=== PATIENT | female | born 1940 | race Caucasian/White ===

== ENCOUNTER 2023-09-11 19:02 | Emergency (ER) | payer MEDICARE, SELFPAY ==
[2023-09-11 19:05] VITALS: BP 163/75; BMI 27.5
[2023-09-11 19:07] VITALS: BP 163/75
[2023-09-11 19:20] LABS: % Basophils 0.3 % (0-2); % Eosinophils 1.9 % (0-6); % Immature Granulocytes 0.3 % (0-0.5); % Lymphocytes 19.9 % (20.5-51.1); % Monocytes 5.1 % (1.7-9.3); % Neutrophils 72.5 % (42.2-75.2); Absolute Eosinophils 0.1 10^3/uL (0-0.7); Absolute Lymphocytes 1.3 10^3/uL (1.2-3.4); Absolute Monocytes 0.3 10^3/uL (0.1-0.6); Absolute Neutrophils 4.7 10^3/uL (1.4-6.5); Hematocrit 39.3 % (37.0-47.0); Hemoglobin 14.2 g/dL (12.0-16.0); Mean Corp Hgb Conc. 36.1 g/dL (33.0-37.0); Mean Corpuscular Hgb 30.7 pg (27.0-31.0); Mean Corpuscular Volume 84.9 fL (81.0-99.0); Nucleated Red Blood Cells % 0 %; Platelet Count 179 10^3/uL (130-400); Red Blood Cell Count 4.63 10^6/uL (4.20-5.40); Red Cell Dist. Width 12.4 % (11.5-14.5); White Blood Cell Count 6.5 10^3/uL (4.8-10.8)
[2023-09-11 19:34] LABS: ALT (SGPT) 19 U/L (0-35); AST (SGOT) 29 U/L (14-36); Alkaline Phosphatase 93 U/L (38-126); Blood Urea Nitrogen 9 mg/dl (7-17); Calcium 8.8 mg/dl (8.4-10.2); Carbon Dioxide 24 mmol/L (22-30); Estimated Creatinine Clearance 49 ml/min; Glucose 193 mg/dl (70-99); Total Bilirubin 0.6 mg/dl (0.2-1.3); Total Protein 6.2 g/dl (6.3-8.2); eGFR > 60.00
[2023-09-11 19:41] LABS: Chloride 100 mmol/L (98-107); Sodium 133 mmol/L (135-145)
[2023-09-11 20:00] VITALS: BP 158/76
--- NOTE | 2023-09-11 20:08 | ED.GENMED ---
Addendum entered and electronically signed by Steven Orozco DO 09/11/23 22:29:
Prior to discharge patient smiling in no acute distress
Original Note:
History of Present Illness
General
Chief Complaint: Anxiety
Source: patient and family
Exam Limitations: dementia
Time Seen by Provider: 09/11/23 19:56
Nursing documentation reviewed up to this point in time: agreed with
Travel History
Have you had any contact with someone who has COVID-19?: No
Do you have any symptoms of coronavirus? Fever > 100 degrees, chills, cough, shortness of breath, sore throat, loss of taste or smell, muscle aches, or headache?: No
History of Present Illness
History of Present Illness:
83-year-old female from [facility] suffers from dementia diagnosed with COVID 5 days ago took 1 pill of Paxlovid stopped because her symptoms are getting better having some cough, eating okay, apparently had a period of confusion and cough today
did not know where she was 911 was called, here she is accompanied by her daughter and son-in-law who live locally she has had a slow recovery from COVID more confused than usual, no falls nondrinker non-smoker does have asthma she lives in
independent living but daughter states she can go home with her daughter can stay with her
Past History
Past History
ED Past Medical History: Other (Dementia)
Social History
Tobacco: Non-smoker
Alcohol: None
Drug: None
Personal: Single
Living: assisted living
Employment: Retired
Review of Systems
Review of Systems
All Other Systems: Not applicable
Constitutional: Denies fever or fatigue
EENT: Reports no symptoms
Respiratory: Reports cough
Cardiac: Reports no symptoms
ABD/GI: Reports no symptoms
: Reports no symptoms
Musculoskeletal: Reports no symptoms
Skin: Reports no symptoms
Neurological: Reports weakness
Endocrine: Reports no symptoms
Phy Exam
Physical Exam
Physical Exam:
Physical Exam
General: no apparent distress, not acutely ill occasionally cough
Neck: Lips are slightly dry
Heart: s1/s2 regular rate and rhythm, no murmur. equal radial pulses.
Lungs: No wheezes no retraction
Abdomen: Not tender
Neuro: Pleasantly confused knows her name knows she is at the hospital knows her daughter son-in-law unsure of the year
Skin: no rash
Psychiatric: cooperative
Extremities: no edema. no calf tenderness.
Course
Orders/Labs/Results
Orders:
Orders
09/11/23 19:13
CMP [Comprehensive Metabolic Panel] Urgent
Complete Blood Count/With Diff Urgent
09/11/23 20:06
CR Chest - 2 Views Urgent
Comment:
Reason For Exam: cough
09/11/23 20:07
CT Head W/o Iv Contrast Urgent
Comment:
Reason For Exam: confusion
Ipratropium/Albuterol Sulfate [Duoneb] 3 ml INH R NOW ONE
09/11/23 20:41
Urinalysis Reflex To Culture Urgent
Date Specimen was Collected: 09/11/23
Time Specimen was Collected: 20:09
Urine Microscopic Reflex Cult Urgent
Abnormal Lab Results
09/11/23 09/11/23
19:13 20:41
Lymphocytes % 19.9 L %
(20.5-51.1)
Sodium 133 L mmol/L
(135-145)
Glucose 193 H mg/dl
(70-99)
Total Protein 6.2 L g/dl
(6.3-8.2)
Leukocyte Esterase Rfl Trace A
(Negative)
09/11/23 19:13
09/11/23 19:13
Vital Signs
Initial and Last Documented VS:
Initial Vital Signs
Temp Pulse Resp BP Pulse Ox
98.1 F 66 18 163/75 98
09/11/23 19:05 09/11/23 19:05 09/11/23 19:05 09/11/23 19:05 09/11/23 19:05
Last Documented Vital Signs
Temp Pulse Resp BP Pulse Ox
98.1 F 82 16 139/72 96
09/11/23 19:05 09/11/23 21:15 09/11/23 21:15 09/11/23 21:00 09/11/23 21:15
MDM/Problems Addressed
Differential Diagnosis Includes:
Dementia you are toxic metabolic doubt stroke or UTI
MDM/Problems Addressed:
Confusion recent COVID
Chronic conditions affecting care: Neurological disorder
Acute Exacerbation and/or Progression of Chronic Illness: Neurological disorder
*Critical Care Note
Total Time (30-74mins, 75-104mins- exclusive of procedures): Not Applicable
Update Note
Update Note:
[address] of the head noted chronic meniangioma, no acute changes, chest x-ray
ED Attending Note
-
Portions of this chart may have been created with voice recognition software.� Occasional wrong word or��sound alike� substitutions may have occurred due to the inherent limitations of voice recognition software.
Discharge Plan
Departure
Patient Disposition: Home (Routine Discharge)
Date of Disposition: 09/11/23
Time of Disposition: 22:08
Patient with high blood pressure during this ER visit?: No
Condition: Good
Covid-19: Suspected COVID-19
Discharge Problem:
Altered mental status
Instructions: COVID-19 (DC)
Prescriptions:
New
albuterol sulfate 90 mcg/actuation HFA aerosol inhaler
2 puff inhalation Q6H PRN (Reason: shortness of breath or wheezing) Qty: 8.5 0RF
No Action
donepezil 10 mg tablet
10 mg PO DAILY
Rx Instructions:
per daughter pt has not been adherent to this medication
alprazolam 0.25 mg tablet
0.25 mg PO BID PRN (Reason: ANXIETY)
Rx Instructions:
this rx was just picked up by family prior to admission. Pt has not taken any yet
sertraline 25 mg tablet
25 mg PO BID
Rx Instructions:
dose was just increased to 50mg daily
lovastatin 20 mg tablet
20 mg PO DAILY
Rx Instructions:
per daughter pt has not been adherent to this medication
aspirin 81 mg Tablet,Chewable
81 mg PO DAILY Qty: 30 0RF
memantine 5 mg tablet
5 mg PO BID Qty: 60 0RF
Rx Instructions:
per daughter pt has not been adherent to this medication
Referrals:
Milena Stubbs DO [Family Provider] -
Interventions
Interventions:
*Risk Screen - Suicide Last Done: 09/11/23 19:05
*Neglect/Abuse Screening Last Done: 09/11/23 19:05
ED- Fall Risk Assessment Last Done: 09/11/23 20:56
*ED COVID-19 Vaccine History Last Done: 09/11/23 19:05
ED-Psychological Assessment Last Done: 09/11/23 20:56
[2023-09-11] MEDS: DUONEB 3 ML INH (20:12)
[2023-09-11 20:47] LABS: Urine Albumin Negative (Neg - Trace); Urine Bilirubin Negative (Negative); Urine Character Clear (Clear); Urine Color Yellow; Urine Glucose Negative (Negative); Urine Ketone Negative (Negative); Urine Leukocyte Trace (Negative); Urine Nitrite Negative (Negative); Urine Occult Blood Negative (Negative); Urine Urobilinogen Negative (Neg - 1+)
[2023-09-11 20:54] LABS: Urine Red Blood Cell None Seen /HPF (0-2); Urine White Cell 0-2 /HPF (0-5)
--- NOTE | 2023-09-11 20:54 | EDRN ---
Patient ambulated into the restroom to obtain urine, was able to ambulate without difficulties, back in bed resting comfortably with family at bedside
[2023-09-11 21:00] VITALS: BP 139/72
== END 2023-09-11 22:58 | disposition home or self-care (01) ==
LOC: EMR 19:02
PROVIDERS: EMERGENCY PHYSICIAN Emergency Medicine; FAMILY PHYSICIAN Hospitalist
DX: R41.82 Altered mental status, unspecified (principal); R05.9 Cough, unspecified; R53.1 Weakness
CPT/HCPCS: 99285; 94640; 70450; 71046; 80053; 81003; 81015; 85025

== ENCOUNTER → 2023-11-09 11:30 | Outpatient (REF) | payer MEDICARE, SELFPAY ==
[2023-11-09 12:16] LABS: Urine Albumin Negative (Neg - Trace); Urine Bilirubin Negative (Negative); Urine Character Clear (Clear); Urine Color Yellow; Urine Glucose Negative (Negative); Urine Ketone Negative (Negative); Urine Leukocyte 1+ (Negative); Urine Nitrite Negative (Negative); Urine Occult Blood Negative (Negative); Urine Urobilinogen Negative (Neg - 1+)
[2023-11-09 12:26] LABS: Urine Bacteria Few (Negative); Urine Red Blood Cell 0-2 /HPF (0-2)
== END ==
LOC: OLABMERCHI 11:30
PROVIDERS: ATTENDING PHYSICIAN Nurse Practitioner Gerontology; FAMILY PHYSICIAN Hospitalist
DX: N39.0 Urinary tract infection, site not specified (principal)
CPT/HCPCS: 81003; 81015; 87086

== ENCOUNTER → 2024-03-27 18:56 | Outpatient (REF) | payer OTHER, SELFPAY ==
[2024-03-27 20:07] LABS: Urine Albumin Negative (Neg - Trace); Urine Bilirubin Negative (Negative); Urine Character Clear (Clear); Urine Color Yellow; Urine Glucose Negative (Negative); Urine Ketone Negative (Negative); Urine Leukocyte 2+ (Negative); Urine Nitrite Negative (Negative); Urine Occult Blood Negative (Negative); Urine Urobilinogen Negative (Neg - 1+)
[2024-03-27 20:20] LABS: Urine Red Blood Cell 0-2 /HPF (0-2); Urine Squamous Cell >30 /LPF (Few)
[2024-03-27 20:21] LABS: Urine Bacteria Many (Negative)
== END ==
LOC: OLABMERCHI 18:56
PROVIDERS: ATTENDING PHYSICIAN Hospitalist
DX: N39.0 Urinary tract infection, site not specified (principal)
CPT/HCPCS: 81003; 81015; 87086

== ENCOUNTER → 2024-07-30 13:56 | Outpatient (REF) | payer MEDICARE, SELFPAY | LOC: WDC 13:56 | PROVIDERS: ATTENDING PHYSICIAN Nurse Practitioner Adult Health; FAMILY PHYSICIAN Hospitalist | DX: Z12.31 Encounter for screening mammogram for malignant neoplasm of breast (principal) | CPT/HCPCS: 77063; 77067 ==

== ENCOUNTER → 2024-08-23 08:15 | Outpatient (REF) | payer MEDICARE, SELFPAY | LOC: WDC 08:15 | PROVIDERS: ATTENDING PHYSICIAN Nurse Practitioner Adult Health; FAMILY PHYSICIAN Hospitalist | DX: R92.8 Other abnormal and inconclusive findings on diagnostic imaging of breast (principal) | CPT/HCPCS: 76642 ==

== ENCOUNTER 2024-09-27 02:39 | Emergency (ER) | payer MEDICARE, SELFPAY ==
[2024-09-27 02:49] VITALS: BP 136/86
[2024-09-27 03:13] LABS: % Basophils 0.2 % (0-2); % Eosinophils 0.2 % (0-6); % Immature Granulocytes 0.4 % (0-0.5); % Lymphocytes 3.3 % (20.5-51.1); % Monocytes 2.4 % (1.7-9.3); % Neutrophils 93.5 % (42.2-75.2); Absolute Immature Granulocytes 0.1 10^3/uL (0-0.05); Absolute Lymphocytes 0.5 10^3/uL (1.2-3.4); Absolute Monocytes 0.3 10^3/uL (0.1-0.6); Absolute Neutrophils 12.8 10^3/uL (1.4-6.5); Hematocrit 49.4 % (37.0-47.0); Hemoglobin 16.8 g/dL (12.0-16.0); Mean Corpuscular Hgb 30.5 pg (27.0-31.0); Mean Corpuscular Volume 89.8 fL (81.0-99.0); Mean Platelet Volume 10.1 fL (7.4-10.4); Nucleated Red Blood Cells % 0 %; Platelet Count 176 10^3/uL (130-400); Red Cell Dist. Width 12.6 % (11.5-14.5); White Blood Cell Count 13.6 10^3/uL (4.8-10.8)
[2024-09-27 03:29] LABS: ALT (SGPT) 23 U/L (0-35); AST (SGOT) 29 U/L (14-36); Alkaline Phosphatase 127 U/L (38-126); Blood Urea Nitrogen 16 mg/dl (7-17); Calcium 10.2 mg/dl (8.4-10.2); Carbon Dioxide 23 mmol/L (22-30); Chloride 102 mmol/L (98-107); Glucose 203 mg/dl (70-99); Potassium 4.6 mmol/L (3.5-5.1); Sodium 137 mmol/L (135-145); Total Bilirubin 1.4 mg/dl (0.2-1.3); Total Protein 7.5 g/dl (6.3-8.2)
[2024-09-27 04:19] VITALS: BP 153/85
[2024-09-27 05:00] VITALS: BP 153/86
[2024-09-27 06:00] VITALS: BP 151/85
--- NOTE | 2024-09-27 06:34 | ED.GENMED ---
History of Present Illness
General
Chief Complaint: Abdominal Symptoms
Time Seen by Provider: 09/27/24 06:34
History of Present Illness
History of Present Illness:
TIME OF INITIAL ENCOUNTER: 6:35 AM
HPI: The patient presents with multiple episodes of diarrhea. There was concern for dehydration. She had 1 episode of vomiting in the emerged ferment the the main symptom was diarrhea. She is not on any antibiotics currently. Her son-in-law
states that there is always 'something going around [facility]'. Although the patient has some degree of mild dementia, she has appears to be able to answer simple questions. She denies abdominal pain. She overall feels improved after IV fluids
have been given. There is no change in her mental status.
EXAM:
GENERAL: Appears in no distress
HEENT: Moist oral mucosa
CARDIOVASCULAR: Borderline tachycardic heart rate with regular rhythm
PULMONARY: No respiratory distress, breathing is nonlabored, equal and clear breath sounds
ABDOMEN: Soft and nontender with no peritoneal signs
NEUROLOGIC: The patient has evidence of dementia, not oriented to month or place, strength is equal in all extremities
EXTREMITIES: Moves all extremities equally, no tenderness, no edema
PYSCHIATRIC: Fair historian, limited insight and judgment
NUMBER AND COMPLEXITY OF PROBLEMS ADDRESSED AT THE ENCOUNTER
� Chronic conditions affecting care: Dementia, hyperlipidemia, anxiety
� Acute Exacerbation and/or Progression of Chronic Illness: This is an acute problem
� Differential Diagnosis includes: Viral gastroenteritis, viral syndrome, norovirus, foodborne illness, doubt colitis as she has no ongoing abdominal and has no tenderness on examination
AMOUNT AND/OR COMPLEXITY OF DATA TO BE REVIEWED AND ANALYZED
� I performed an independent evaluation of and my interpretation is:
EKG:
CT:
X-rays:
Laboratory Studies: White count is 13.6, hemoglobin 16.8, creatinine is 1.3, glucose is 203, minimal elevation of total bili but normal transaminase
Other:
� Review of other/old records: The patient was seen here with a change in mental status 2 weeks ago after starting Paxlovid
� Clinical information was obtained by an independent historian: I spoke to the son-in-law at bedside for history
� Prescriptions/Medications Considered but not given:
� Further testing considered but not performed: Considered CT of the abdomen pelvis however the patient has no abdominal tenderness
RISK OF COMPLICATIONS AND/OR MORBIDITY OR MORTALITY OF PATIENT MANAGEMENT
� Social determinants of health affecting care: She lives with a electrical test technician in independent living at [facility].
� Discussion with other providers:
� Escalation of care including admission/observation vs risk of discharge considered: The patient has no abdominal pain on examination. She overall reports improvement after a liter of fluid was given. Blood work suggest some
degree of mild dehydration. Of note the blood sugar is 203 I notified the son-in-law of this and they will follow-up with primary care doctor as well.
ANY OTHER UPDATES:
Past History
Past History
ED Past Medical History: Other (Dementia)
Social History
Tobacco: Non-smoker
Alcohol: None
Drug: None
Personal: Single
Living: assisted living
Employment: Retired
Phy Exam
Physical Exam
Physical Exam:
See HPI
Course
Orders/Labs/Results
Orders:
Orders
09/27/24 03:05
CMP [Comprehensive Metabolic Panel] Urgent
Complete Blood Count/With Diff Urgent
09/27/24 06:35
0.9% Sodium Chloride 1000 ml [Nss] 1,000 ml IV BOLUS
Abnormal Lab Results
09/27/24
03:05
WBC 13.6 H 10^3/uL
(4.8-10.8)
RBC 5.50 H 10^6/uL
(4.20-5.40)
Hgb 16.8 H g/dL
(12.0-16.0)
Hct 49.4 H %
(37.0-47.0)
Abs Immat Gran (auto) 0.1 H 10^3/uL
(0-0.05)
Absolute Neuts (auto) 12.8 H 10^3/uL
(1.4-6.5)
Absolute Lymphs (auto) 0.5 L 10^3/uL
(1.2-3.4)
Neutrophils % 93.5 H %
(42.2-75.2)
Lymphocytes % 3.3 L %
(20.5-51.1)
Creatinine 1.3 H mg/dL
(0.6-1.0)
Glucose 203 H mg/dl
(70-99)
Total Bilirubin 1.4 H mg/dl
(0.2-1.3)
Alkaline Phosphatase 127 H U/L
(38-126)
09/27/24 03:05
09/27/24 03:05
Vital Signs
Initial and Last Documented VS:
Initial Vital Signs
Temp Pulse Resp BP Pulse Ox
36.5 C 103 26 136/86 100
09/27/24 02:49 09/27/24 02:49 09/27/24 02:49 09/27/24 02:49 09/27/24 02:49
Last Documented Vital Signs
Temp Pulse Resp BP Pulse Ox
36.5 C 103 26 151/85 97
09/27/24 02:49 09/27/24 02:49 09/27/24 02:49 09/27/24 06:00 09/27/24 06:00
*Critical Care Note
Total Time (30-74mins, 75-104mins- exclusive of procedures): Not Applicable
ED Attending Note
-
Portions of this chart may have been created with voice recognition software.� Occasional wrong word or��sound alike� substitutions may have occurred due to the inherent limitations of voice recognition software.
Discharge Plan
Departure
Patient Disposition: Home (Routine Discharge)
Date of Disposition: 09/27/24
Time of Disposition: 06:40
Patient with high blood pressure during this ER visit?: Yes
Discharge Problem:
Diarrhea with dehydration
Instructions: Diarrhea in teens and adults, Dehydration, Adult (DC), BLOOD PRESSURE
Prescriptions:
No Action
donepezil 10 mg tablet
10 mg PO DAILY
Rx Instructions:
per daughter pt has not been adherent to this medication
alprazolam 0.25 mg tablet
0.25 mg PO BID PRN (Reason: ANXIETY)
Rx Instructions:
this rx was just picked up by family prior to admission. Pt has not taken any yet
sertraline 25 mg tablet
25 mg PO BID
Rx Instructions:
dose was just increased to 50mg daily
lovastatin 20 mg tablet
20 mg PO DAILY
Rx Instructions:
per daughter pt has not been adherent to this medication
aspirin 81 mg Tablet,Chewable
81 mg PO DAILY Qty: 30 0RF
memantine 5 mg tablet
5 mg PO BID Qty: 60 0RF
Rx Instructions:
per daughter pt has not been adherent to this medication
albuterol sulfate 90 mcg/actuation HFA aerosol inhaler
2 puff inhalation Q6H PRN (Reason: shortness of breath or wheezing) Qty: 8.5 0RF
Referrals:
Milena Stubbs, DO [Family Provider] -
Activity Restrictions/Additional Instructions:
White count is elevated and hemoglobin is also on the higher side along with a mild elevation of the creatinine�this suggest some degree of dehydration you were given IV fluids. Of note, your blood sugar is elevated at 203 and I recommend that you
follow-up with primary care doctor for reassessment. You are given a liter of IV fluid to help treat mild dehydration. Return here if worse or other concerns.
Interventions
Interventions:
*Risk Screen - Suicide Last Done: 09/27/24 02:49
*General Assessment Last Done: 09/27/24 04:18
*Neglect/Abuse Screening Last Done: 09/27/24 04:18
ED- Fall Risk Assessment Last Done: 09/27/24 04:17
*ED COVID-19 Vaccine History Last Done: 09/27/24 04:18
CV-[place] Assessment Last Done: 09/27/24 04:16
Discharge Date and Time
Print Language: ICELANDIC
--- NOTE | 2024-09-27 06:40 | EDRN ---
Dr. Day currently at the [facility] bedside
[2024-09-27 06:43] VITALS: BP 136/81
[2024-09-27] MEDS: NSS 1000 IV (06:43)
== END 2024-09-27 06:47 | disposition home or self-care (01) ==
LOC: EMR 02:39
PROVIDERS: Student in an Organized Health Care Education/Training Program; EMERGENCY PHYSICIAN Emergency Medicine; FAMILY PHYSICIAN Hospitalist
DX: R19.7 Diarrhea, unspecified (principal); E86.0 Dehydration; F03.A0 Unspecified dementia, mild, without behavioral disturbance, psychotic disturbance, mood disturbance, and anxiety
CPT/HCPCS: 99283; 96360; 80053; 85025

== ENCOUNTER → 2024-11-08 12:24 | Outpatient (REF) | payer MEDICARE, SELFPAY ==
[2024-11-08 13:49] LABS: % Basophils 0.6 % (0-2); % Immature Granulocytes 0.2 % (0-0.5); % Lymphocytes 32.8 % (20.5-51.1); % Monocytes 6.5 % (1.7-9.3); % Neutrophils 55.9 % (42.2-75.2); Absolute Basophils 0.1 10^3/uL (0-0.2); Absolute Eosinophils 0.4 10^3/uL (0-0.7); Absolute Lymphocytes 2.8 10^3/uL (1.2-3.4); Absolute Monocytes 0.6 10^3/uL (0.1-0.6); Absolute Neutrophils 4.8 10^3/uL (1.4-6.5); Hematocrit 48.6 % (37.0-47.0); Hemoglobin 15.7 g/dL (12.0-16.0); Mean Corp Hgb Conc. 32.3 g/dL (33.0-37.0); Mean Corpuscular Hgb 29.9 pg (27.0-31.0); Mean Corpuscular Volume 92.6 fL (81.0-99.0); Mean Platelet Volume 10.8 fL (7.4-10.4); Nucleated Red Blood Cells % 0 %; Platelet Count 232 10^3/uL (130-400); Red Blood Cell Count 5.25 10^6/uL (4.20-5.40); Red Cell Dist. Width 12.8 % (11.5-14.5); White Blood Cell Count 8.7 10^3/uL (4.8-10.8)
[2024-11-08 14:03] LABS: ALT (SGPT) 26 U/L (0-35); AST (SGOT) 31 U/L (14-36); Albumin 4.8 g/dl (3.5-5.0); Alkaline Phosphatase 120 U/L (38-126); Blood Urea Nitrogen 9 mg/dl (7-17); Calcium 9.3 mg/dl (8.4-10.2); Carbon Dioxide 27 mmol/L (22-30); Chloride 104 mmol/L (98-107); Glucose 109 mg/dl (70-99); Potassium 4.4 mmol/L (3.5-5.1); Sodium 142 mmol/L (135-145); Total Bilirubin 0.9 mg/dl (0.2-1.3); Total Protein 6.9 g/dl (6.3-8.2); eGFR > 60.00
[2024-11-08 14:19] LABS: Glycohemoglobin (HgbA1c) 5.8 % (4.0-5.6)
== END ==
LOC: OLABMERCHI 12:24
PROVIDERS: FAMILY PHYSICIAN Hospitalist
DX: R73.09 Other abnormal glucose (principal); D72.829 Elevated white blood cell count, unspecified
CPT/HCPCS: 36415; 80053; 83036; 85025

== ENCOUNTER → 2025-01-22 09:26 | Outpatient (REF) | payer MEDICARE, SELFPAY | LOC: WDC 09:26 | PROVIDERS: ATTENDING PHYSICIAN Nurse Practitioner Adult Health | DX: R92.8 Other abnormal and inconclusive findings on diagnostic imaging of breast (principal) | CPT/HCPCS: 76642 ==